=== PATIENT | female | born 1950 | race Caucasian/White ===

== ENCOUNTER 2019-07-09 08:05 | Day surgery (SDC) | payer MEDICARE, OTHER ==
[~2019-07-09 08:05] MED LIST: MAGNESIUM 400 M1 TAB; ZOLPIDEM10 M1 PO
[2019-07-09] MEDS ORDERED: PERCOCET 5/325M1 TAB PO (10:05)
[2019-07-09 10:15] VITALS: BP 129/58
== END 2019-07-09 10:30 | disposition home or self-care (01) ==
LOC: ORM 08:05
PROVIDERS: ATTEND Surgery
PROC: 0JB90ZZ Excision of Buttock Subcutaneous Tissue and Fascia, Open Approach (ICD-10-PCS; principal; 2019-07-09)
DX: L73.2 Hidradenitis suppurativa (principal)

== ENCOUNTER 2019-12-09 | Day surgery (SDC) | payer MEDICARE, OTHER ==
[~2019-12-09] MED LIST changes: +MAGNESIUM PO; +METAMUCIL28 % PO; +PEPCID20 MG PO; +PERCOCET 5/325M1 TAB PO
[2019-12-09] MEDS ORDERED: PREVACID15 M3 PO (09:56)
== END 2019-12-09 10:02 | disposition home or self-care (01) ==
PROC: 0DB78ZX Excision of Stomach, Pylorus, Via Natural or Artificial Opening Endoscopic, Diagnostic (ICD-10-PCS; principal; 2019-12-09)
DX: K25.9 Gastric ulcer, unspecified as acute or chronic, without hemorrhage or perforation (principal); K29.50 Unspecified chronic gastritis without bleeding; K21.9 Gastro-esophageal reflux disease without esophagitis; Z87.11 Personal history of peptic ulcer disease; Z11.59 Encounter for screening for other viral diseases

== ENCOUNTER 2022-06-13 07:57 | Day surgery (SDC) | payer MEDICARE, OTHER ==
[~2022-06-13] VITALS: Ht 165.1 cm; Wt 57.6 kg
[~2022-06-13 07:57] MED LIST changes: +ALLERGY RELIEF10 M4 PO; +CIMETIDINE 200200 MG PO; +PREVACID15 M3 PO; +PROBIOTI2 PO
[2022-06-13 10:52] VITALS: BP 132/65
== END 2022-06-13 10:30 | disposition home or self-care (01) ==
LOC: ENDO 07:57 → ORM 09:00 → ENDO 10:30
PROVIDERS: ATTEND Surgery
PROC: 0DJD8ZZ Inspection of Lower Intestinal Tract, Via Natural or Artificial Opening Endoscopic (ICD-10-PCS; principal; 2022-06-13)
DX: K64.8 Other hemorrhoids (principal); Z85.44 Personal history of malignant neoplasm of other female genital organs